=== PATIENT | female | born 1955 | race Asian ===

== ENCOUNTER 2016-05-29 17:12 | Emergency (ER) | payer SELFPAY ==
[~2016-05-29 17:12] MED LIST: AMLO-511 PO; AMOX500C2 PO; CARI350T PO; METOPROLOL; ULTRAM PO; VICODIN
== END 2016-05-29 17:54 | disposition left against medical advice (07) ==
LOC: EMS 17:13
DX: R06.02 Shortness of breath (principal); Z53.21 Procedure and treatment not carried out due to patient leaving prior to being seen by health care provider

== ENCOUNTER 2016-07-02 13:00 | Emergency (ER) | payer OTHER ==
[~2016-07-02] VITALS: Ht 149.9 cm; Wt 61.8 kg
[2016-07-02 13:17] LABS: GLUCOSE,POINT OF CARE 143 MG/DL (70-110)
[2016-07-02 16:10] LABS: BASOPHILS % (AUTO) 0.5 % (0.0-2.0); EOSINOPHILS % (AUTO) 7.8 % (1.0-6.0); HEMATOCRIT 41.2 % (36-46); HEMOGLOBIN 13.4 g/dL (12.0-16.0); LYMPHOCYTES # (AUTO) 2.7 K/uL (1.0-4.8); LYMPHOCYTES % (AUTO) 39.4 % (22.0-44.0); MEAN CORPUSCULAR HEMOGLOBIN 30.6 pg (26.0-34.0); MEAN CORPUSCULAR HGB CONC 32.6 G/dL (31.0-37.0); MEAN CORPUSCULAR VOLUME 94 fL (80-100); MONOCYTES # (AUTO) 0.8 K/uL (0.1-1.0); MONOCYTES % (AUTO) 12.2 % (2.0-9.0); NEUTROPHILS # (AUTO) 2.7 K/uL (1.8-7.7); NEUTROPHILS % (AUTO) 40.1 % (40.0-70.0); PLATELET COUNT (AUTO) 222 K/uL (150-450); RED BLOOD CELL COUNT(AUTO) 4.39 MIL/uL (4.00-5.20); RED CELL DISTRIBUTION WIDTH 14.8 % (11.5-14.5); WHITE BLOOD COUNT (AUTO) 6.8 K/uL (4.5-11.0)
[2016-07-02 16:38] LABS: ANION GAP 12 mmol/L (8-16); CALCIUM, TOTAL 8.7 mg/dL (8.8-10.5); CARBON DIOXIDE 24 mmol/L (22-29); CHLORIDE 106 mmol/L (98-107); CREATININE 0.82 mg/dL (0.60-1.30); GLOMERULAR FILTR. RATE CALC > 60 mL/min (>60); SODIUM SERUM 142 mmol/L (136-145); UREA NITROGEN, BLOOD 19 mg/dL (7-18)
[2016-07-02 16:43] LABS: ALANINE AMINOTRANSFERASE 29 U/L (12-78); ALBUMIN 3.5 g/dL (3.4-5.0); ASPARTATE AMINOTRANSFERASE 20 U/L (15-37); BILIRUBIN,TOTAL 0.3 mg/dL (0.1-1.0); TOTAL PROTEIN, SERUM 7.3 g/dL (6.4-8.2)
[2016-07-02] MEDS ORDERED: ACETAMINOPHEN 325 MG TABLET PO ONE (16:45)
[2016-07-02 16:48] LABS: LACTIC ACID 1.4 mmol/L (0.4-2.0)
[2016-07-02] MEDS ORDERED: OSEL75 PO (16:59)
[2016-07-02] MEDS ORDERED: LETR2.5 PO (16:59)
[2016-07-02] MEDS ORDERED: GUAIF10 PO (16:59)
[2016-07-02] MEDS ORDERED: SERT50TA12 PO (16:59)
[2016-07-02] MEDS ORDERED: METF500T4 PO (16:59)
[2016-07-02] MEDS ORDERED: BUPR200T34 PO (16:59)
[2016-07-02] MEDS ORDERED: MELO-273 PO (16:59)
[2016-07-02] MEDS ORDERED: AMLO-512 PO (16:59)
[2016-07-02] MEDS ORDERED: QUET100T PO (16:59)
[2016-07-02] MEDS ORDERED: OXYC-341 PO (16:59)
[2016-07-02] MEDS ORDERED: ONDA4 PO (16:59)
[2016-07-02] MEDS ORDERED: GuaiFENesin/D-METHORPHAN [SUGAR-FREE] 200-20MG/10 ML SYRUP UDCUP PO ONE (18:00)
[2016-07-02 18:26] VITALS: BP 127/70
== END 2016-07-02 18:29 | disposition home or self-care (01) ==
LOC: EMS 13:02
DX: J40 Bronchitis, not specified as acute or chronic (principal); L03.313 Cellulitis of chest wall
CPT/HCPCS: 82962; 83605; 99285

== ENCOUNTER 2016-07-06 17:15 | Emergency (ER) | payer OTHER ==
[~2016-07-06] VITALS: Ht 149.9 cm; Wt 61.8 kg
[~2016-07-06 17:15] MED LIST changes: -AMLO-511 PO; +AMLO-512 PO; -AMOX500C2 PO; +BUPR200T34 PO; -CARI350T PO; +GUAIF10 PO; +LETR2.5 PO; +MELO-273 PO; +METF500T4 PO; -METOPROLOL; +ONDA4 PO; +OSEL75 PO; +OXYC-341 PO; +QUET100T PO; +SERT50TA12 PO; -ULTRAM PO; -VICODIN
[2016-07-06 17:57] LABS: GLUCOSE,POINT OF CARE 114 MG/DL (70-110)
[2016-07-06 18:30] LABS: BASOPHILS # (AUTO) 0.05 K/uL (0.00-0.20); BASOPHILS % (AUTO) 0.7 % (0.0-2.0); EOSINOPHILS # (AUTO) 0.57 K/uL (0.00-0.70); EOSINOPHILS % (AUTO) 8.57 % (1.0-6.0); HEMOGLOBIN 13.6 g/dL (12.0-16.0); LYMPHOCYTES # (AUTO) 2.8 K/uL (1.0-4.8); LYMPHOCYTES % (AUTO) 41.7 % (22.0-44.0); MEAN CORPUSCULAR HGB CONC 33.1 G/dL (31.0-37.0); MEAN CORPUSCULAR VOLUME 94 fL (80-100); MONOCYTES # (AUTO) 0.9 K/uL (0.1-1.0); MONOCYTES % (AUTO) 13.3 % (2.0-9.0); NEUTROPHILS # (AUTO) 2.4 K/uL (1.8-7.7); NEUTROPHILS % (AUTO) 35.7 % (40.0-70.0); PLATELET COUNT (AUTO) 223 K/uL (150-450); RED BLOOD CELL COUNT(AUTO) 4.38 MIL/uL (4.00-5.20); RED CELL DISTRIBUTION WIDTH 14.8 % (11.5-14.5); WHITE BLOOD COUNT (AUTO) 6.7 K/uL (4.5-11.0)
[2016-07-06 18:43] LABS: ANION GAP 10 mmol/L (8-16); CARBON DIOXIDE 25 mmol/L (22-29); CHLORIDE 105 mmol/L (98-107); CREATININE 0.84 mg/dL (0.60-1.30); GLOMERULAR FILTR. RATE CALC > 60 mL/min (>60); SODIUM SERUM 140 mmol/L (136-145); UREA NITROGEN, BLOOD 15 mg/dL (7-18)
[2016-07-06 18:49] LABS: ALANINE AMINOTRANSFERASE 25 U/L (12-78); ALBUMIN 3.8 g/dL (3.4-5.0); ASPARTATE AMINOTRANSFERASE 14 U/L (15-37); BILIRUBIN,TOTAL 0.2 mg/dL (0.1-1.0); TOTAL PROTEIN, SERUM 7.5 g/dL (6.4-8.2)
[2016-07-06 18:56] LABS: B-TYPE NATRIURETIC PEPTIDE 19 pg/mL (0-100)
[2016-07-06] MEDS ORDERED: SODIUM CHLORIDE 0.9% 100 ML ONE (20:55)
[2016-07-06] MEDS ORDERED: IOVERSOL 350 MG/ML 100 ML VIAL ONE (20:55)
[2016-07-07 00:02] VITALS: BP 130/66
[2016-07-07] MEDS ORDERED: ALBUTEROL SULFATE HFA 90 MCG/PUFF 8 GM INHALER IH ONE (00:15)
== END 2016-07-07 00:17 | disposition home or self-care (01) ==
LOC: EMS 17:16
DX: R60.0 Localized edema (principal); J40 Bronchitis, not specified as acute or chronic; E11.9 Type 2 diabetes mellitus without complications; I10 Essential (primary) hypertension
CPT/HCPCS: 36415; 71010; 71275; 80053; 82962; 83880; 84484; 85025; 93005; 93971; 94640; 99285; J7050; Q9967; J3535

== ENCOUNTER 2024-12-26 09:17 | Emergency (ER) | payer OTHER ==
[~2024-12-26] VITALS: Ht 154.9 cm; Wt 59.1 kg
[~2024-12-26 09:17] MED LIST changes: +AMLO-258 PO; -AMLO-512 PO; +GUAI100L96 PO; -GUAIF10 PO; +MELO-107 PO; -MELO-273 PO; +METF-1211 PO; -METF500T4 PO; +ONDA-104 PO; -ONDA4 PO; -OSEL75 PO; +OSEL75CA45 PO; -OXYC-341 PO; +OXYC1TAB6 PO; +SERT-158 PO; -SERT50TA12 PO
[2024-12-26 09:28] VITALS: BP 170/99; PULSE 84; RESP 18; TEMP 97.9; O2SAT 99
[2024-12-26] MEDS ORDERED: ATOR40TA71 PO (13:55)
[2024-12-26] MEDS ORDERED: MELO-108 PO (13:55)
[2024-12-26] MEDS ORDERED: ALBU18HF12 IH (13:55)
[2024-12-26] MEDS ORDERED: OMEP40CA21 PO (13:55)
[2024-12-26] MEDS ORDERED: METF-446 PO (13:55)
[2024-12-26] MEDS ORDERED: BENA-8 PO (13:55)
[2024-12-26] MEDS ORDERED: QUET400T13 PO (13:55)
[2024-12-26] MEDS ORDERED: ALEN70TA80 PO (13:55)
[2024-12-26] MEDS ORDERED: CALC-26 PO (13:55)
[2024-12-26] MEDS ORDERED: TOLT4CAP27 PO (13:55)
[2024-12-26] MEDS: OxyCODONE HCL/ACETAMINOPHEN 5-325 MG TABLET PO ONE (14:00)
[2024-12-26] MEDS: KETOROLAC TROMETHAMINE 30 MG/ML VIAL IM ONE (14:01)
== END 2024-12-26 18:35 | disposition home or self-care (01) ==
LOC: EMS 09:23
DX: M25.562 Pain in left knee (principal); M25.512 Pain in left shoulder; E11.9 Type 2 diabetes mellitus without complications; I10 Essential (primary) hypertension; M06.9 Rheumatoid arthritis, unspecified; M17.12 Unilateral primary osteoarthritis, left knee; Z79.1 Long term (current) use of non-steroidal anti-inflammatories (NSAID); Z79.811 Long term (current) use of aromatase inhibitors; Z79.899 Other long term (current) drug therapy; Z85.3 Personal history of malignant neoplasm of breast; Z90.10 Acquired absence of unspecified breast and nipple; W19.XXXA Unspecified fall, initial encounter
CPT/HCPCS: 99284; 71045; 82962; 73030; 73562; 96372; J1885